=== PATIENT | male | born 1995 | race Caucasian/White ===

== ENCOUNTER 2016-05-31 11:49 | Day surgery (SDC) | payer OTHER ==
[2016-05-26 16:47] VITALS: BMI 20.8
[2016-05-31] MEDS ORDERED: ROPIVACAINE HCL 0.5% 30ML VIAL ONE (13:53)
[2016-05-31] MEDS ORDERED: ONDANSETRON 4 MG/2 ML VIAL IVPUSH PRN (15:28)
[2016-05-31] MEDS ORDERED: oxyCODONE HCL 5 MG TABLET PO PRN ×2 (15:28)
[2016-05-31] MEDS ORDERED: oxyCODONE HCL 5 MG TABLET ONE (16:16)
[2016-05-31 21:11] VITALS: BP 123/68; PULSE 61; TEMP 98
--- NOTE | 2016-05-31 21:59 | OP ---
DATE OF OPERATION: 05/31/2016 PREOPERATIVE DIAGNOSIS: Left likely triangular fibrocartilaginous complex tear. POSTOPERATIVE DIAGNOSIS: Left triangular fibrocartilaginous complex partial tear. PROCEDURE: Left wrist operative arthroscopy with debridement of triangular fibrocartilaginous complex tear. SURGEON: Dg Fernando MD ANESTHESIA: General. COMPLICATIONS: None. ESTIMATED BLOOD LOSS: Minimal. INDICATIONS FOR PROCEDURE: The patient is a 20-year-old male with the above finding, indicated for operative treatment. Risks, benefits, alternatives were discussed with patient at length. Proper informed consent was obtained. PROCEDURE: After proper identification of patient and correct operative site, patient brought to operating room, placed supine on the table, parts well padded. General anesthesia was provided by the anesthesiologist. The left upper extremity was prepped and draped in usual sterile fashion. A well padded tourniquet was placed over sterile prep. Left upper extremity was placed into the wrist traction tower with 10 pounds of in-line traction. A 2.7 mm gravity arthroscope was used through incisions that were made with skin incision only and blunt dissection down to the joint capsule. The 3-4 and 4-5 portals were used. Radiocarpal joint was observed and found to be free of articular defects. Scapholunate and lunotriquetral ligaments were intact. No loose bodies were noted. Volar ligaments were intact. Fraying of the volar and dorsal aspect of the TFCC were noted and this was debrided with mechanical shaver. Significant dorsal synovitis was found at the ulnar aspect of the TFCC. Partial tearing was noted of the TFCC tear here but no phuc full-thickness tear was noted. Excellent trampoline effect was noted and there was no instability of the DRUJ. After debridement was complete, no further treatment was necessary at this time and the wounds were repaired with 5-0 nylon suture. Sterile dressings were applied. Patient was reversed from anesthesia and brought to the recovery room in stable condition. He tolerated the procedure well. DG FERNANDO M.D. GUILHERME/[id number]
== END 2016-05-31 17:20 | disposition home or self-care (01) ==
LOC: FASU 11:49
PROVIDERS: ATTEND Orthopaedic Surgery Hand Surgery
PROC: 0RBN4ZZ Excision of Right Wrist Joint, Percutaneous Endoscopic Approach (ICD-10-PCS; principal; 2016-05-31 14:29)
DX: S63.591A Other specified sprain of right wrist, initial encounter (principal); X58.XXXA Exposure to other specified factors, initial encounter; Y93.9 Activity, unspecified; Y92.9 Unspecified place or not applicable
CPT/HCPCS: 94760

== ENCOUNTER 2016-07-22 23:23 | Emergency (ER) | payer OTHER ==
[2016-07-22 23:30] VITALS: BP 129/74; PULSE 62; TEMP 98; BMI 19.8
[2016-07-23] MEDS ORDERED: METOCLOPRAMIDE HCL INJECTION 10 MG/2 ML VIAL IVPUSH ONE (00:41)
[2016-07-23] MEDS ORDERED: SODIUM CHLORIDE 0.9% 500 ML INFUS.BAG IV ONE (00:41)
--- NOTE | 2016-07-23 00:42 | PDOC ---
History of Present Illness - General History Source: Patient Exam Limitations: No Limitations - History of Present Illness Initial Comments: 07/23/16 00:56 The patient is a 20 year old male with no significant past medical history who presents to the ED with complaints of migraine headaches for two weeks. The patient locates the pain to the frontal and temporal regions of his head and complains of associated light sensitivity, visual changes, and nausea. He reports having an appointment with a neurologist on Sunday and has been taking fioricet which provides minimal relief. He denies any recent illness, fever, chills, vomiting, diarrhea, cough, shortness of breath, chest pain, or urinary symptoms. <Amy Rodriguez - Last Filed: 07/23/16 04:13> - General History Source: Patient <GuillaumeBob Mike - Last Filed: 07/23/16 04:37> - General Chief Complaint: Migraine Headache Stated Complaint: MIGRAINE/BLURRY VISION Past History <Amy Rodriguez - Last Filed: 07/23/16 04:13> - Past Medical History Anemia: No Asthma: Yes (ALBUTEROL USED 05/25/16 X 3-LAST USED 1 YEAR AGO) Cancer: No Cardiac Disorders: No CVA: No COPD: No CHF: No Dementia: No Diabetes: No GI Disorders: No Disorders: No HTN: No Hypercholesterolemia: No Liver Disease: No Seizures: No Thyroid Disease: No - Immunization History Immunization Up to Date: Yes - Psycho/Social/Smoking Cessation Hx Anxiety: No Suicidal Ideation: No Smoking Status: No Smoking History: Never smoked Have you smoked in the past 12 months: No Number of Cigarettes Smoked Daily: 0 Hx Alcohol Use: Yes (OCCASIONALLY) Drug/Substance Use Hx: No (FEW TIMES PER WEEK) Substance Use Type: Marijuana Hx Substance Use Treatment: No <Palmer LakeBob Mkie - Last Filed: 07/23/16 04:37> - Past Medical History Allergies/Adverse Reactions: Allergies Allergy/AdvReac Type Severity Reaction Status Date / Time No Known Allergies Allergy Verified 07/22/16 23:30 Home Medications: Ambulatory Orders Albuterol 0.083% Nebulizer Traci [Ventolin 0.083%] 1 neb NEB Q4H PRN 05/26/16 Albuterol Sulfate Inhaler - [Ventolin Hfa Inhaler -] 1 - 2 inh PO Q4H PRN Review of Systems - Review of Systems Able to Perform ROS?: Yes Comments:: 07/23/16 00:56 GENERAL/CONSTITUTIONAL: No fever or chills. No weakness. HEAD, EYES, EARS, NOSE AND THROAT: No change in vision. No ear pain or discharge. No sore throat. CARDIOVASCULAR: No chest pain or shortness of breath. RESPIRATORY: No cough, wheezing, or hemoptysis. GASTROINTESTINAL: Present: Nausea No vomiting, diarrhea or constipation. GENITOURINARY: No dysuria, frequency, or change in urination. MUSCULOSKELETAL: No joint or muscle swelling or pain. No neck or back pain. SKIN: No rash NEUROLOGIC: Present: headache, light sensitivity, visual changes No vertigo, loss of consciousness, or change in strength/sensation. ENDOCRINE: No increased thirst. No abnormal weight change. HEMATOLOGIC/LYMPHATIC: No anemia, easy bleeding, or history of blood clots. ALLERGIC/IMMUNOLOGIC: No hives or skin allergy. All Other Systems: Reviewed and Negative <mAy Rodriguez - Last Filed: 07/23/16 04:13> *Physical Exam - Vital Signs Last Vital Signs Temp Pulse Resp BP Pulse Ox 98 F 62 18 129/74 100 07/22/16 23:26 07/22/16 23:26 07/22/16 23:26 07/22/16 23:26 07/22/16 23:26 - Physical Exam Comments: 07/23/16 00:57 GENERAL: Awake, alert, and fully oriented, in no acute distress HEAD: No signs of trauma EYES:Photophobia, normal visual acuity bilaterally, PERRLA, EOMI, sclera anicteric, conjunctiva clear ENT: Auricles normal inspection, hearing grossly normal, nares patent, oropharynx clear without exudates. Moist mucosa NECK: Normal ROM, supple, no lymphadenopathy, JVD, or masses LUNGS: Breath sounds equal, clear to auscultation bilaterally. No wheezes, and no crackles HEART: Regular rate and rhythm, normal S1 and S2, no murmurs, rubs or gallops ABDOMEN: Soft, nontender, normoactive bowel sounds. No guarding, no rebound. No masses EXTREMITIES: Normal range of motion, no edema. No clubbing or cyanosis. No cords , erythema, or tenderness NEUROLOGICAL: Cranial nerves II through XII grossly intact. Normal speech, normal gait SKIN: Warm, Dry, normal turgor, no rashes or lesions noted. <carlosquocAmy - Last Filed: 07/23/16 04:13> - Vital Signs Last Vital Signs Temp Pulse Resp BP Pulse Ox 98 F 62 18 129/74 100 07/22/16 23:26 07/22/16 23:26 07/22/16 23:26 07/22/16 23:26 07/22/16 23:26 <Bob Galaviz - Last Filed: 07/23/16 04:37> ED Treatment Course - RADIOLOGY Radiograph Interpretation: 07/23/16 01:[address] as reviewed by Dr. Banerjee reports no intracranial abnormality. No bleed , infarct or mass. <carlosquocAmy - Last Filed: 07/23/16 04:13> Medical Decision Making - Medical Decision Making 07/23/16 04:31 20yo m with 5 days migraine type headache and today he reports change in vision ; objectively, there is photophobia and with analgesia, he improved significantly; there was no visual deficit objectively and he has no findings on PE; He has a negative head CT noncontrast. He is encouraged to follow up with neurology and encouraged to return if there is any change otherwise in symptoms. <Bob Galaviz - Last Filed: 07/23/16 04:37> *DC/Admit/Observation/Transfer - Attestations Scribe Attestion: 07/23/16 00:58 Documentation prepared by Amy Rodriguez, acting as medical biller for Bob Galaviz MD. <skylaAmy - Last Filed: 07/23/16 04:13> - Discharge Dispostion Admit: No Decision to Admit order Date/Time: 07/23/16 04:27 - Attestations Physician Attestion: 07/23/16 04:31 I, Dr. Bob Galaviz MD, attest that this document has been prepared under my direction and personally reviewed by me in its entirety. I further attest, that it accurately reflects all work, treatment, procedures and medical decision -making performed by me. <Bob Galaviz - Last Filed: 07/23/16 04:37> Diagnosis at time of Disposition: Migraine Qualifiers: Migraine type: without aura - Discharge Dispostion Disposition: HOME Condition at time of disposition: Good - Referrals Referrals: STAFF,NOT ON [Primary Care Provider] - - Patient Instructions Additional Instructions: Please follow up with your PMD within the next 48 hours and if there is any change otherwise in symptoms, please return immediately to the ED.
[2016-07-23] MEDS ORDERED: METOCLOPRAMIDE HCL INJECTION 10 MG/2 ML VIAL ONE (00:52)
== END 2016-07-23 04:47 | disposition home or self-care (01) ==
LOC: JER 23:23
PROC: 3E033GC Introduction of Other Therapeutic Substance into Peripheral Vein, Percutaneous Approach (ICD-10-PCS; principal; 2016-07-22)
DX: G43.009 Migraine without aura, not intractable, without status migrainosus (principal)
CPT/HCPCS: 70450-TC; 99282-25

== ENCOUNTER 2017-03-14 19:22 | Emergency (ER) | payer OTHER ==
[2017-03-14 19:33] VITALS: BP 142/80; PULSE 80; TEMP 97.3; BMI 20.9
--- NOTE | 2017-03-14 20:00 | PDOC ---
History of Present Illness - General Chief Complaint: Eye Problem Stated Complaint: INJURY Time Seen by Provider: 03/14/17 19:48 Past History - Past Medical History Allergies/Adverse Reactions: Allergies Allergy/AdvReac Type Severity Reaction Status Date / Time No Known Allergies Allergy Verified 07/22/16 23:30 Home Medications: Ambulatory Orders Ofloxacin 0.3% Ophth Soln [Ocuflox -] 1 drop OD Q2H #84 drops 03/14/17 Anemia: No Asthma: Yes (ALBUTEROL USED 05/25/16 X 3-LAST USED 1 YEAR AGO) Cancer: No Cardiac Disorders: No CVA: No COPD: No CHF: No Dementia: No Diabetes: No GI Disorders: No Disorders: No HTN: No Hypercholesterolemia: No Liver Disease: No Seizures: No Thyroid Disease: No - Immunization History Immunization Up to Date: Yes - Suicide/Smoking/Psychosocial Hx Smoking Status: No Smoking History: Never smoked Have you smoked in the past 12 months: No Number of Cigarettes Smoked Daily: 0 Information on smoking cessation initiated: No Hx Alcohol Use: No Drug/Substance Use Hx: No Substance Use Type: Marijuana Hx Substance Use Treatment: No *Physical Exam - Vital Signs Last Vital Signs Temp Pulse Resp BP Pulse Ox 97.3 F L 80 16 142/80 99 03/14/17 19:29 03/14/17 19:29 03/14/17 19:29 03/14/17 19:29 03/14/17 19:29 *DC/Admit/Observation/Transfer Diagnosis at time of Disposition: Corneal abrasion, right Qualifiers: Encounter type: initial encounter Qualified Code(s): S05.01XA - Injury of conjunctiva and corneal abrasion without foreign body, right eye, initial encounter - Discharge Dispostion Disposition: HOME Condition at time of disposition: Good - Referrals Referrals: Nestor Whelan MD [Staff Physician] - - Patient Instructions Printed Discharge Instructions: DI for Corneal Abrasion Additional Instructions: You have a scratch on your eye or a corneal abrasion. These will heal in a couple of days. You were prescribed eye drops. Please use them for the next week. You may use Tylenol or motrin as needed for pain. Follow up with opthamology within one week. Return to the ED if your vision changes, if you have fevers, chills, or if you have any changes in your symptoms - Post Discharge Activity
[2017-03-14] MEDS ORDERED: IBUPROFEN 600 MG TABLET (FP) PO ONE (20:21)
== END 2017-03-14 20:32 | disposition home or self-care (01) ==
LOC: JERFT 19:22
DX: S05.01XA Injury of conjunctiva and corneal abrasion without foreign body, right eye, initial encounter (principal); X58.XXXA Exposure to other specified factors, initial encounter; Y93.89 Activity, other specified; Y92.9 Unspecified place or not applicable
CPT/HCPCS: 99281-25

== ENCOUNTER 2017-03-21 19:53 | Emergency (ER) | payer OTHER ==
[2017-03-21 20:14] VITALS: TEMP 97.8; BMI 20.9
--- NOTE | 2017-03-21 20:15 | PDOC ---
Rapid Medical Evaluation Chief Complaint: Rectal Bleed Time Seen by Provider: 03/21/17 20:12 Medical Evaluation: Allergies Allergy/AdvReac Type Severity Reaction Status Date / Time No Known Allergies Allergy Verified 07/22/16 23:30 03/21/17 20:12 I have performed a brief in-person evaluation of this patient. The patient presents with a chief complaint of: Rectal Bleeding. Pertinent physical exam findings: none. I have ordered the following: cbc, cmp, type and screen, pt/inr, urinalysis The patient will proceed to the ED for further evaluation.
[2017-03-21 20:49] LABS: EOSINOPHIL 2.6 % (0-4.5); MCHC 35.8 g/dl (32.0-35.9); MEAN PLT VOLUME 7.1 fl (7.5-11.1); NEUTROPHILS 66.4 % (42.8-82.8); PLATELET COUNT 195 K/MM3 (134-434); RDW 12.8 % (11.9-15.9)
--- NOTE | 2017-03-21 20:54 | PDOC ---
History of Present Illness - General History Source: Patient Exam Limitations: No Limitations - History of Present Illness Initial Comments: 03/21/17 22:16 The patient is a 21 year old male, with a significant past medical history of asthma, who presents to the emergency department with rectal bleeding since earlier this morning. The patient reports first noting bright red blood in his stool during his first bowel movement this morning. As the day went on, patient reports another bowel movement nonbloody in nature. Prior to presentation, patient reports a bowel movement with minimal stool and hematochezia. He reports associated abdominal pain localized periumbilically and lower back pain , but denies any nausea, vomiting, diarrhea, constipation, or melena. He denies any family history of GI bleeds. He denies any fever, chills, joint pain, dizziness, or lightheadedness. He denies any dysuria, hematuria, frequency, or urgency. He denies any heavy lifting, trauma, recent travel or sick contacts. Allergies: NKDA Past Surgical History: None reported Social History: Non smoker. No ETOH or recreational drug use. Family History: Father: gastric ulcers, colon cancer <ThomasCatrachitalaith - Last Filed: 03/22/17 01:18> <Hipolito Zayas - Last Filed: 03/22/17 01:40> - General Chief Complaint: Rectal Bleed Stated Complaint: RECTAL BLEEDING Time Seen by Provider: 03/21/17 20:53 Past History <Dean Guzman - Last Filed: 03/22/17 01:18> - Past Medical History Anemia: No Asthma: Yes (ALBUTEROL USED 05/25/16 X 3-LAST USED 1 YEAR AGO) Cancer: No Cardiac Disorders: No CVA: No COPD: No CHF: No Dementia: No Diabetes: No GI Disorders: No Disorders: No HTN: No Hypercholesterolemia: No Liver Disease: No Seizures: No Thyroid Disease: No - Immunization History Immunization Up to Date: Yes - Suicide/Smoking/Psychosocial Hx Smoking Status: No Smoking History: Never smoked Have you smoked in the past 12 months: No Number of Cigarettes Smoked Daily: 0 Hx Alcohol Use: No Drug/Substance Use Hx: No Substance Use Type: Marijuana Hx Substance Use Treatment: No <Hipolito Zayas - Last Filed: 03/22/17 01:40> - Past Medical History Allergies/Adverse Reactions: Allergies Allergy/AdvReac Type Severity Reaction Status Date / Time No Known Allergies Allergy Verified 03/21/17 20:11 Home Medications: Ambulatory Orders NK [No Known Home Medication] 03/21/17 Review of Systems - Review of Systems Able to Perform ROS?: Yes Comments:: 03/21/17 22:16 CONSTITUTIONAL: No fever, no chills, no fatigue EYES: No visual changes ENT: No ear pain, no sore throat CARDIOVASCULAR: No chest pain, no palpitations RESPIRATORY: No cough, no SOB GI: Yes periumbilical abdominal pain, hematochezia. No nausea, no vomiting, no constipation, no diarrhea, no melena GENITOURINARY: No dysuria, no frequency, no hematuria MUSCULOSKELETAL: Yes lower back pain. No joint pain, no myalgias SKIN: No rash NEURO: No headache <Dean Guzman - Last Filed: 03/22/17 01:18> *Physical Exam - Vital Signs Last Vital Signs Temp Pulse Resp BP Pulse Ox 97.8 F 81 18 121/78 99 03/21/17 20:13 03/21/17 20:13 03/21/17 20:13 03/21/17 20:13 03/21/17 20:13 - Physical Exam Comments: 03/21/17 22:16 CONSTITUTIONAL: Well-appearing; well-nourished; in no apparent distress HEAD: Normocephalic; atraumatic EYES: PERRL; EOM intact ENMT: External appears normal; normal oropharynx NECK: Supple; non-tender; no cervical lymphadenopathy CARD: Normal S1, S2; no murmurs, rubs, or gallops RESP: Normal chest excursion with respiration; breath sounds clear and equal bilaterally; no wheezes, rhonchi, or rales ABD: Periumbilical tenderness to palpation. Soft, non-distended; no palpable organomegaly, no palpable hernias EXT: Normal ROM in all four extremities; non-tender to palpation; distal pulses intact SKIN: Warm, dry, no rash NEURO: No focal neurological deficiencies. <Dean Guzman - Last Filed: 03/22/17 01:18> - Vital Signs Last Vital Signs Temp Pulse Resp BP Pulse Ox 97.8 F 81 18 121/78 99 03/21/17 20:13 03/21/17 20:13 03/21/17 20:13 03/21/17 20:13 03/21/17 20:13 <Hipolito Zayas - Last Filed: 03/22/17 01:40> ED Treatment Course - LABORATORY CBC & Chemistry Diagram: 03/21/17 20:40 03/21/17 20:35 - ADDITIONAL ORDERS Additional order review: Laboratory Results 03/21/17 03/21/17 03/21/17 21:50 20:35 20:35 PT with INR INR PTT (Actin FS) Sodium 141 Potassium 3.8 Chloride 105 Carbon Dioxide 29 Anion Gap 7 L BUN 16 Creatinine 1.3 D Creat Clearance w eGFR > 60 Random Glucose 71 L Calcium 8.5 Total Bilirubin 0.6 AST 21 D ALT 53 D Alkaline Phosphatase 68 Total Protein 7.7 Albumin 4.4 Stool Occult Blood Negative Blood Type B NEGATIVE Antibody Screen Negative 03/21/17 20:35 PT with INR 11.50 INR 1.02 PTT (Actin FS) 29.1 Sodium Potassium Chloride Carbon Dioxide Anion Gap BUN Creatinine Creat Clearance w eGFR Random Glucose Calcium Total Bilirubin AST ALT Alkaline Phosphatase Total Protein Albumin Stool Occult Blood Blood Type Antibody Screen 03/21/17 20:40 RBC 5.15 MCV 84.0 MCHC 35.8 RDW 12.8 MPV 7.1 L Neutrophils % 66.4 D Lymphocytes % 23.8 D Monocytes % 6.2 Eosinophils % 2.6 Basophils % 1.0 - RADIOLOGY Radiograph Interpretation: 03/22/17 00:57 EXAM: CT Abdomen and Pelvis INTERPRETED BY: Dr. Krishna REVIEWED BY: Dr. Zayas IMPRESSION: No localizing signs of acute pathology. Minimal pelvic free fluid is nonspecific, potentially physiologic <GuzmanGiomilsy - Last Filed: 03/22/17 01:18> - LABORATORY CBC & Chemistry Diagram: 03/21/17 20:40 03/21/17 20:35 - ADDITIONAL ORDERS Additional order review: 03/21/17 20:40 RBC 5.15 MCV 84.0 MCHC 35.8 RDW 12.8 MPV 7.1 L Neutrophils % 66.4 D Lymphocytes % 23.8 D Monocytes % 6.2 Eosinophils % 2.6 Basophils % 1.0 <Hipolito Zayas - Last Filed: 03/22/17 01:40> Medical Decision Making - Medical Decision Making 03/21/17 23:26 21-year-old male presents with several episodes of bright red blood per rectum associated with atraumatic periumbilical pain. In the ER, patient is awake and alert, afebrile, hemodynamically stable. Serial abdominal exams reveal periumbilical tenderness only without guarding or rebound rectal exam reveals no evidence of external lesions or active bleeding at this time. CBC/CMP within normal limit. Will obtain CT of abdomen and pelvis with by mouth and IV contrast to rule out colitis versus IBD. Will reassess. 03/22/17 00:59 Patient is resting comfortably, with mild persistent periumbilical discomfort only without guarding rebound. Patient tolerates by mouth. CBC/CMP within normal limit. After administration of by mouth nightly contrast, patient complaining of mild dysphasia. On reevaluation, no evidence of angioedema or stridor is noted. Patient is currently drinking water without any difficulty. CT of abdomen and pelvis reveals no evidence of acute intra-abdominal pathology. There is no indication for IV antibiotic therapy at this time. I do not suspect infectious colitis or intussusception at this time. Patient has been advised of the lab and radiological findings. Will follow-up with GI. Patient will return for recurrent or worsening symptoms. Patient is safe for discharge with follow-up. 03/22/17 01:12 No stridor is noted. Patient was able to tolerate a pitcher of water. Patient complains of numbness to the base of the tongue. We'll administer Benadryl. We' ll continue to observe. 03/22/17 01:39 pt with left sided globus sensation only. george po. bernardo d/c. <Hipolito Zayas - Last Filed: 03/22/17 01:40> *DC/Admit/Observation/Transfer - Attestations Scribe Attestion: 03/21/17 22:17 Documentation prepared by Dean Guzman, acting as medical housekeeper for Hipolito Zayas MD. <Dean Guzman - Last Filed: 03/22/17 01:18> - Attestations Physician Attestion: 03/21/17 23:25 The documentation was prepared by the scribe under my direct supervision. I have reviewed the documentation which correctly represents the findings, medical decision-making and critical action taken by me. <Hipolito Zayas - Last Filed: 03/22/17 01:40> Diagnosis at time of Disposition: Rectal bleeding Abdominal pain Qualifiers: Abdominal location: periumbilical Qualified Code(s): R10.33 - Periumbilical pain - Discharge Dispostion Disposition: HOME Condition at time of disposition: Stable - Referrals Referrals: STAFF,NOT ON [Primary Care Provider] - Jonas Flores MD [Staff Physician] - - Patient Instructions Printed Discharge Instructions: DI for Rectal Bleeding, DI for Abdominal Pain- Adult - Post Discharge Activity
[2017-03-21 21:02] LABS: INR 1.02 (0.82-1.09); PROTHROMBIN TIME (PATIENT) 11.5 SEC (9.98-11.88)
[2017-03-21 21:05] LABS: ACTIVATED PTT 29.1 SECONDS (26.9-34.4)
[2017-03-21 21:18] LABS: ALBUMIN 4.4 g/dl (3.4-5.0); ALK PHOS 68 U/L (45-117); ANION GAP 7 (8-16); BILIRUBIN,TOTAL 0.6 mg/dL (0.2-1.0); CALCIUM 8.5 mg/dL (8.5-10.1); CO2 29 mmol/L (21-32); CREATININE 1.3 mg/dL (0.7-1.3); GLUCOSE,RANDOM 71 mg/dL (74-106); SGOT/AST 21 U/L (15-37); SGPT/ALT 53 U/L (12-78); TOT PROT 7.7 g/dl (6.4-8.2)
[2017-03-21] MEDS ORDERED: SODIUM CHLORIDE 1,000 ML IV STA (21:41)
[2017-03-22] MEDS ORDERED: diphenhydrAMINE HCL 25 MG CAPSULE (FP) PO ONE ×2 (01:12)
[2017-03-22 02:00] VITALS: BP 130/68; PULSE 77
== END 2017-03-22 02:04 | disposition home or self-care (01) ==
LOC: JER 19:53
PROC: 3E0337Z Introduction of Electrolytic and Water Balance Substance into Peripheral Vein, Percutaneous Approach (ICD-10-PCS; principal; 2017-03-21)
DX: R10.33 Periumbilical pain (principal)
CPT/HCPCS: 36415; 74177-TC; 80053; 82272; 85025; 85610; 85730; 86850; 86900; 86901; 99283-25

== ENCOUNTER 2017-09-21 20:53 | Emergency (ER) | payer OTHER ==
[2017-09-21 21:00] VITALS: BP 144/85; PULSE 78; TEMP 98.4; BMI 22.4
--- NOTE | 2017-09-21 21:01 | PDOC ---
Rapid Medical Evaluation Time Seen by Provider: 09/21/17 20:58 Medical Evaluation: Allergies Allergy/AdvReac Type Severity Reaction Status Date / Time No Known Allergies Allergy Verified 07/20/17 21:04 09/21/17 20:59 I have performed a brief-in person evaluation of this patient. The patient presents with a chief complaint of: Right testicular pain shooting up to right side pelvic region. Neg urinary symptoms Pertinent physical exam findings: abd Soft/NT,ND +right pelvic region pain on palp I have ordered the following: testicular US, ua The patient will proceed to the ED for further evaluation. Discharge Disposition - Referrals Referrals: Pema Zurita [Primary Care Provider] - - Patient Instructions - Post Discharge Activity
[2017-09-21 21:30] LABS: URINE APPEARANCE CLEAR; URINE BILIRUBIN NEGATIVE (<2.0 mg/dL); URINE COLOR YELLOW; URINE GLUCOSE (UA) NEGATIVE (NEGATIVE); URINE KETONE NEGATIVE (NEGATIVE); URINE LEUK ESTERASE NEGATIVE (NEGATIVE); URINE NITRITE NEGATIVE (NEGATIVE); URINE PROTEIN NEGATIVE (NEGATIVE); URINE UROBILINOGEN NEGATIVE mg/dL (0.2-1.0)
--- NOTE | 2017-09-21 22:47 | PDOC ---
History of Present Illness - General Chief Complaint: Pain, Acute Stated Complaint: ABD PAIN Time Seen by Provider: 09/21/17 20:58 - History of Present Illness Initial Comments: Patient is a 21 year old male, with a significant past medical history of prior GI bleed, internal hemorrhoids, who presents to the emergency department complaining of 4-5 days of R inguinal and testicular pain. Pt was in usual state of health one week ago when he stated he "pulled something" in his right groin while carrying furniture. A few days later patient noted pain in R inguinal canal, thigh and testicle with intermittent swelling of R testicle. Pt denies any urinary symptoms, discharge, masses in R inguinal canal. Pt sexually active with girlfriend only over last year, does not use protection, with no hx of STDs. Pt denies any rashes, genital lesions, dysuria, hematuria, pyuria, abdominal pain, f/c/n/v/d. The patient denies chest pain, shortness of breath, headache or dizziness. Denies fever, chills, nausea, vomiting, diarrhea and constipation. Denies dysuria, frequency, urgency and hematuria. Allergies: None Past surgical history: R ankle surgery, colonoscopy/endoscopy Social History: Denies toxic habits PMD: Not on staff 09/21/17 23:04 Past History - Past Medical History Allergies/Adverse Reactions: Allergies Allergy/AdvReac Type Severity Reaction Status Date / Time No Known Allergies Allergy Verified 07/20/17 21:04 Home Medications: Ambulatory Orders NK [No Known Home Medication] 03/21/17 Anemia: No Asthma: Yes (ALBUTEROL USED 05/25/16 X 3-LAST USED 1 YEAR AGO) Cancer: No Cardiac Disorders: No CVA: No COPD: No CHF: No Dementia: No Diabetes: No GI Disorders: No Disorders: No HTN: No Hypercholesterolemia: No Liver Disease: No Seizures: No Thyroid Disease: No - Immunization History Immunization Up to Date: Yes - Suicide/Smoking/Psychosocial Hx Smoking Status: No Smoking History: Never smoked Have you smoked in the past 12 months: No Number of Cigarettes Smoked Daily: 0 Information on smoking cessation initiated: No Hx Alcohol Use: No Drug/Substance Use Hx: No Substance Use Type: Marijuana Hx Substance Use Treatment: No Review of Systems - Review of Systems Comments:: GENERAL/CONSTITUTIONAL: No fever or chills. No weakness. HEAD, EYES, EARS, NOSE AND THROAT: No change in vision. No ear pain or discharge. No sore throat. CARDIOVASCULAR: No chest pain or shortness of breath RESPIRATORY: No cough, wheezing, or hemoptysis. GASTROINTESTINAL: No nausea, vomiting, diarrhea or constipation. GENITOURINARY: + pain in R inguinal canal and testicle. No dysuria, frequency, or change in urination. MUSCULOSKELETAL: No joint or muscle swelling or pain. No neck or back pain. SKIN: No rash NEUROLOGIC: No headache, vertigo, loss of consciousness, or change in strength/ sensation. ENDOCRINE: No increased thirst. No abnormal weight change HEMATOLOGIC/LYMPHATIC: No anemia, easy bleeding, or history of blood clots. ALLERGIC/IMMUNOLOGIC: No hives or skin allergy. 09/21/17 23:04 *Physical Exam - Vital Signs Last Vital Signs Temp Pulse Resp BP Pulse Ox 98.4 F 78 20 144/85 99 09/21/17 20:58 09/21/17 20:58 09/21/17 20:58 09/21/17 20:58 09/21/17 20:58 - Physical Exam Comments: GENERAL: Awake, alert, and fully oriented, in no acute distress HEAD: No signs of trauma, normocephalic, atraumatic EYES: PERRLA, EOMI, sclera anicteric, conjunctiva clear ENT: Auricles normal inspection, hearing grossly normal, nares patent, oropharynx clear without exudates. Moist mucosa NECK: Normal ROM, supple, no lymphadenopathy, JVD, or masses LUNGS: No distress, speaks full sentences, clear to auscultation bilaterally HEART: Regular rate and rhythm, normal S1 and S2, no murmurs, rubs or gallops, peripheral pulses normal and equal bilaterally. ABDOMEN: Soft, nontender, normoactive bowel sounds. No guarding, no rebound. No masses EXTREMITIES : Normal inspection, Normal range of motion, no edema. No clubbing or cyanosis. NEUROLOGICAL: Cranial nerves II through XII grossly intact. Normal speech, normal gait, no focal sensorimotor deficits SKIN: Warm, Dry, normal turgor, no rashes or lesions noted GENITAL: No lesions or rashes in penis or testicles, no evidence of varicocele. No pain on palpation. Pain on palpation of R inguinal canal, with no obvious masses palpable. 09/21/17 23:04 ED Treatment Course - LABORATORY CBC & Chemistry Diagram: 09/22/17 00:25 09/22/17 00:25 - ADDITIONAL ORDERS Additional order review: Laboratory Results 09/21/17 21:13 Urine Color Yellow Urine Appearance Clear Urine pH 5.0 Ur Specific [place] 1.023 Urine Protein Negative Urine Glucose (UA) Negative Urine Ketones Negative Urine Blood Negative Urine Nitrite Negative Urine Bilirubin Negative Urine Urobilinogen Negative Ur Leukocyte Esterase Negative Medical Decision Making - Medical Decision Making Patient is a 21 year old male, with a significant past medical history of prior GI bleed, internal hemorrhoids, who presents to the emergency department complaining of 4-5 days of R inguinal and testicular pain. DDX includes inguinal hernia, femoral hernia, testicular torsion, UTI, STI. Plan: - Testicular U/S - UA - CBC, CMP, PT/INR - Pain control with IV morphine 09/21/17 23:14 *DC/Admit/Observation/Transfer Diagnosis at time of Disposition: Deep inguinal pain, right - Discharge Dispostion Disposition: HOME Condition at time of disposition: Good Decision to Admit order: No - Referrals Referrals: Pema Zurita [Primary Care Provider] - Call tomorrow - Patient Instructions Additional Instructions: During your visit to the [facility] ED, you were evaluated for pain in your R groin. You received standard labs, a urinalysis and ultrasound of your testicles, which were all normal. You are being discharged home with outpatient follow-up with your primary care provider. Please take motrin 600mg every four hours if you experience this pain. If you experience any of the following symptoms, please return to the ED: - Persistent fevers/chills >3 days - Worsening pain in your groin - Any blood, pus or pain when your urinate - Persistent diarrhea or blood in your stool - Any new or concerning symptoms - Post Discharge Activity
[2017-09-21] MEDS ORDERED: morphine CARPU-JECT 2 MG/1 ML DISP.SYRIN IVPUSH ONE (23:17)
[2017-09-22] MEDS ORDERED: morphine CARPU-JECT 2 MG/1 ML DISP.SYRIN ONE ×2 (00:31→03:02)
[2017-09-22 00:37] LABS: BASO % 1.3 % (0-2.0); EOS % 3.2 % (0-4.5); HEMATOCRIT 44.5 % (35.4-49); HEMOGLOBIN 15.5 GM/dL (11.7-16.9); LYMPH % 45.3 % (8-40); MCH 29.3 pg (25.7-33.7); MCHC 34.9 g/dl (32.0-35.9); MEAN CELL VOLUME 83.8 fl (80-96); MEAN PLT VOLUME 7.6 fl (7.5-11.1); MONO % 5.3 % (3.8-10.2); NEUT % 44.9 % (42.8-82.8); PLATELET COUNT 223 K/MM3 (134-434); RBC 5.31 M/mm3 (4.00-5.60); RDW 12.7 % (11.9-15.9); WHITE BLOOD COUNT 6.8 K/mm3 (4.0-10.0)
[2017-09-22 00:49] LABS: INR 1.11 (0.82-1.09); PROTHROMBIN TIME (PATIENT) 12.5 SEC (9.7-13.0)
[2017-09-22 00:59] LABS: ALBUMIN 4.3 g/dl (3.4-5.0); ALK PHOS 69 U/L (45-117); ANION GAP 9 (8-16); BILIRUBIN,TOTAL 0.6 mg/dL (0.2-1.0); BLOOD UREA NITROGEN 17 mg/dL (7-18); CALCIUM 8.9 mg/dL (8.5-10.1); CHLORIDE 103 mmol/L (98-107); CO2 27 mmol/L (21-32); CREATININE 1.2 mg/dL (0.7-1.3); GLUCOSE,RANDOM 79 mg/dL (74-106); POTASSIUM 3.9 mmol/L (3.5-5.1); SGOT/AST 16 U/L (15-37); SGPT/ALT 24 U/L (12-78); SODIUM 139 mmol/L (136-145); TOT PROT 7.5 g/dl (6.4-8.2)
[2017-09-22] MEDS ORDERED: morphine CARPU-JECT 4 MG/1 ML DISP.SYRIN IVPUSH ONE (02:42)
--- NOTE | 2017-09-22 05:59 | PDOC ---
Attending Attestation - [facility] HPI: 09/22/17 06:07 The patient is a 21 year old male with a significant PMH of GI bleed and internal hemorrhoids who presents to the emergency department with right inguinal and testicular pain for approximately 4 days. The patient states he began feeling this inguinal and testicular pain began feeling this pain after carrying furniture. The patient describes the testicular pain as raditing to the right toes. The patient reports the pain worsened when coughing ior sneezing. The patient denes any difficulty eating or drinking. The patient denies chest pain, shortness of breath, headache and dizziness. Denies fever, chills, nausea, vomit, diarrhea and constipation. Denies dysuria, frequency, urgency and hematuria. Allergies: NKA Past surgical history: None reported. Social history: No reported alcohol, drug, or cigarette use. v - Physicial Exam PE: 09/22/17 06:07 " General Physical Exam: NAD EOMI, VEENA MMM, OP WNL NCAT, no midline cervical tenderness RRR, nl s1/s2, no m/r/g CTABL, no w/r/r Soft, NTND (+) Mild tenderness to the mid inguinal area. No edema, WWP, no rash Neuro grossly intact, gait WNL, moving all 4 A&O x 3, mood/affect WNL. "
[2017-09-22] MEDS ORDERED: IBUPROFEN 400 MG TABLET (FP) PO ONE ×2 (06:20→06:58)
== END 2017-09-22 07:07 | disposition home or self-care (01) ==
LOC: JER 20:53
PROC: 3E033NZ Introduction of Analgesics, Hypnotics, Sedatives into Peripheral Vein, Percutaneous Approach (ICD-10-PCS; principal; 2017-09-21)
DX: R10.31 Right lower quadrant pain (principal); Z87.19 Personal history of other diseases of the digestive system; Z87.09 Personal history of other diseases of the respiratory system; X50.0XXA Overexertion from strenuous movement or load, initial encounter; Y93.E9 Activity, other interior property and clothing maintenance; Y92.89 Other specified places as the place of occurrence of the external cause; Y99.8 Other external cause status
CPT/HCPCS: 36415; 76870-TC; 80053; 81003; 85025; 85610; 99281-25

== ENCOUNTER 2018-01-01 19:32 | Emergency (ER) | payer OTHER ==
--- NOTE | 2018-01-01 19:46 | PDOC ---
Rapid Medical Evaluation Time Seen by Provider: 01/01/18 19:41 Medical Evaluation: Allergies Allergy/AdvReac Type Severity Reaction Status Date / Time No Known Allergies Allergy Verified 07/20/17 21:04 01/01/18 19:42 I have performed a brief in-person evaluation of this patient. The patient presents with a chief complaint of: :L index laceration sustained he accidentally drills a nail gun into finger at work, last tetanus >10yrs ago Pertinent physical exam findings:+ puncture in L index pad I have ordered the following:xray The patient will proceed to the ED for further evaluation. 01/01/18 19:46 Discharge Disposition - Diagnosis Finger laceration Qualifiers: Encounter type: initial encounter Finger: index finger Damage to nail status: with damage Foreign body presence: unspecified Laterality: left Qualified Code(s ): S61.311A - Laceration without foreign body of left index finger with damage to nail, initial encounter - Referrals Referrals: Pema Zurita [Primary Care Provider] - - Patient Instructions - Post Discharge Activity
[2018-01-01 19:49] VITALS: BP 152/95; PULSE 71; TEMP 98; BMI 21.7
[2018-01-01] MEDS ORDERED: TETANUS AND DIPHTHERIA TOXOID 0.5 ML DISP.SYRIN IM ONE (20:42)
--- NOTE | 2018-01-01 20:52 | PDOC ---
History of Present Illness - General Chief Complaint: Injury Stated Complaint: LEFT FINGER INJURY Time Seen by Provider: 01/01/18 19:41 - History of Present Illness Initial Comments: 01/01/18 20:47 22-year-old male without comorbidities presents for a puncture wound of his left second finger. 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 Past History - Past Medical History Allergies/Adverse Reactions: Allergies Allergy/AdvReac Type Severity Reaction Status Date / Time No Known Allergies Allergy Verified 07/20/17 21:04 Home Medications: Ambulatory Orders Cephalexin [Keflex] 500 mg PO QID #40 capsule 01/01/18 Sulfamethoxazole/Trimethoprim [Bactrim Ds -] 1 tab PO BID #14 tablet 01/01/18 Anemia: No Asthma: Yes (ALBUTEROL USED 05/25/16 X 3-LAST USED 1 YEAR AGO) Cancer: No Cardiac Disorders: No CVA: No COPD: No CHF: No Dementia: No Diabetes: No GI Disorders: No Disorders: No HTN: No Hypercholesterolemia: No Liver Disease: No Seizures: No Thyroid Disease: No - Immunization History Immunization Up to Date: Yes - Suicide/Smoking/Psychosocial Hx Smoking Status: No Smoking History: Never smoked Have you smoked in the past 12 months: No Number of Cigarettes Smoked Daily: 0 Information on smoking cessation initiated: No Hx Alcohol Use: No Drug/Substance Use Hx: No Substance Use Type: Marijuana Hx Substance Use Treatment: No Review of Systems - Review of Systems Musculoskeletal: Yes: See HPI All Other Systems: Reviewed and Negative *Physical Exam - Vital Signs Last Vital Signs Temp Pulse Resp BP Pulse Ox 98 F 71 16 152/95 100 01/01/18 19:44 01/01/18 19:44 01/01/18 19:44 01/01/18 19:44 01/01/18 19:44 - Physical Exam Comments: There is a small puncture wound at the ulnar tip of the left second finger. FDS and FDP work independently. He has no gross sensorimotor deficits she is neurovascularly intact. 01/01/18 20:48 Medical Decision Making - Medical Decision Making The wound was copiously irrigated and dry sterile dressing was placed. 01/01/18 20:49 *DC/Admit/Observation/Transfer Diagnosis at time of Disposition: Puncture wound Diagnosis at time of Disposition: (Ruled Out): Finger laceration - Discharge Dispostion Disposition: HOME Condition at time of disposition: Stable Decision to Admit order: No - Referrals Referrals: Pema Zurita [Primary Care Provider] - Donell Larsen MD [Staff Physician] - - Patient Instructions Printed Discharge Instructions: DI for Puncture Wound Additional Instructions: Return to the emergency room should he experience any increasing pain and redness swellings or drainage from the wound. Follow-up with hand surgery in 1- 2 days further evaluation and treatment options. Take the antibiotics as directed and he may use Tylenol and Motrin for pain as directed. Leave the dressing on for 24 hours after which may remove the dressing and wash her hand with soap and water and leave the area open to air. if you are working need to use you your hand you may cover with a dry sterile dressing. - Post Discharge Activity
== END 2018-01-01 20:53 | disposition home or self-care (01) ==
LOC: JERFT 19:32
PROC: 3E0234Z Introduction of Serum, Toxoid and Vaccine into Muscle, Percutaneous Approach (ICD-10-PCS; principal; 2018-01-01)
DX: S61.231A Puncture wound without foreign body of left index finger without damage to nail, initial encounter (principal)
CPT/HCPCS: 73140-TC-LT-FY; 99281-25

== ENCOUNTER 2020-08-11 09:31 | Day surgery (SDC) | payer OTHER ==
[2020-08-09 13:59] VITALS: BMI 21.7
[2020-08-11] MEDS ORDERED: PROPOFOL 20 ML ONE ×2 (11:09)
[2020-08-11] MEDS ORDERED: MIDAZOLAM HCL 2 MG/2 ML SINGLE DOSE VIAL ONE ×3 (11:10→12:31)
[2020-08-11] MEDS ORDERED: BUPIVACAINE HCL/PF 0.25% (2.5MG/ML) 10 ML VIAL ONE (11:20)
[2020-08-11] MEDS ORDERED: ceFAZolin SODIUM 1 GM VIAL ONE (11:28)
[2020-08-11] MEDS ORDERED: ONDANSETRON 4 MG/2 ML VIAL ONE ×2 (11:31→12:33)
[2020-08-11] MEDS ORDERED: DEXAMETHASONE SOD PHOSPHATE 4 MG/1 ML VIAL ONE (11:31)
[2020-08-11] MEDS ORDERED: GUM MASTIC/STORAX/MSAL/ALCOHOL 1 DRP DROPSBTL MC ONE (12:31)
[2020-08-11] MEDS ORDERED: BUPIVACAINE HCL/PF 0.25% (2.5MG/ML) 10 ML VIAL IJ ONE (12:35)
[2020-08-11] MEDS ORDERED: oxyCODONE HCL 5 MG TABLET PO PRN (12:53)
[2020-08-11] MEDS ORDERED: ONDANSETRON 4 MG/2 ML VIAL IVPUSH PRN (12:53)
[2020-08-11] MEDS ORDERED: LACTATED RINGERS SOLUTION 1,000 ML IV SCH (13:00)
[2020-08-11] MEDS ORDERED: KETOROLAC TROMETHAMINE 30 MG/1 ML VIAL ONE (13:25)
[2020-08-11] MEDS ORDERED: ACETAMINOPHEN INJECTION 100 ML IVPB ONE (13:25)
[2020-08-11] MEDS ORDERED: ACETAMINOPHEN 1000 MG/100 ML VIAL (NON FORMULARY) IVPB ONE (13:31)
[2020-08-11] MEDS ORDERED: oxyCODONE HCL 5 MG TABLET ONE (14:01)
[2020-08-11 14:13] VITALS: TEMP 97.5
[2020-08-11 15:00] VITALS: BP 130/78; PULSE 74
== END 2020-08-11 14:55 | disposition home or self-care (01) ==
LOC: FASU 09:31
PROVIDERS: ATTEND Orthopaedic Surgery Hand Surgery
PROC: 0PSP04Z Reposition Right Metacarpal with Internal Fixation Device, Open Approach (ICD-10-PCS; 2020-08-11)
PROC: 0PSP04Z Reposition Right Metacarpal with Internal Fixation Device, Open Approach (ICD-10-PCS; 2020-08-11)
PROC: 0PSM04Z Reposition Right Carpal with Internal Fixation Device, Open Approach (ICD-10-PCS; principal; 2020-08-11 11:30)
DX: S62.304A Unspecified fracture of fourth metacarpal bone, right hand, initial encounter for closed fracture (principal); S62.306A Unspecified fracture of fifth metacarpal bone, right hand, initial encounter for closed fracture; S62.141A Displaced fracture of body of hamate [unciform] bone, right wrist, initial encounter for closed fracture; X58.XXXA Exposure to other specified factors, initial encounter; Y92.9 Unspecified place or not applicable; Y93.9 Activity, unspecified
CPT/HCPCS: 25645; 26615; C1713; 94760; J0131

== ENCOUNTER 2024-07-08 22:37 | Inpatient (IN) | payer OTHER ==
[2024-07-08 23:09] VITALS: BMI 25.0
[2024-07-08] MEDS ORDERED: MAG HYDROX/AL HYDROX/SIMETH 30 ML UNIT-DOSE CUP PO PRN (23:49)
[2024-07-08] MEDS ORDERED: BENZONATATE 200 MG CAPSULE PO PRN (23:49)
[2024-07-08] MEDS ORDERED: IBUPROFEN 400 MG TABLET (FP) PO PRN (23:49)
[2024-07-08] MEDS ORDERED: BENZOCAINE/MENTHOL (CHLORASEPTIC ) LOZENGE MM PRN (23:49)
[2024-07-08] MEDS ORDERED: NALOXONE (NARCAN) HCL 4 MG/0.1 ML SPRAY NS PRN (23:49)
[2024-07-08] MEDS ORDERED: POLYETHYLENE GLYCOL (HEALTHYLAX) 3350 17 GM PACKET PO PRN (23:49)
[2024-07-08] MEDS ORDERED: LOPERAMIDE HCL 2 MG CAPSULE PO PRN (23:49)
[2024-07-08] MEDS ORDERED: guaiFENesin 600 MG TABLET.ER (FP) PO PRN (23:49)
[2024-07-08] MEDS ORDERED: MAGNESIUM HYDROX 2400MG/30ML ORAL SUSPENSION 30 ML CUP PO PRN (23:49)
[2024-07-09] MEDS ORDERED: DICYCLOMINE HCL 10 MG CAPSULE ONE (01:04)
[2024-07-09] MEDS: DICYCLOMINE HCL 10 MG CAPSULE PO PRN (01:08)
[2024-07-09] MEDS: ACETAMINOPHEN 325 MG TABLET (FP) PO PRN (06:28)
[2024-07-09] MEDS ORDERED: ALBUTEROL SO4 HFA INHALER IH PRN (06:50)
[2024-07-09] MEDS: ONDANSETRON *ODT* 4 MG TABLET SL PRN (08:53)
[2024-07-09] MEDS ORDERED: methaDONE HCL 10 MG TABLET (FOR DETOX USE ONLY) PO PRN (09:13)
[2024-07-09] MEDS: PRENATAL VITAMINS W/ FOLIC ACID TABLET (FP) PO SCH (09:35)
[2024-07-09] MEDS: METHOCARBAMOL 500 MG TABLET PO PRN (09:35)
[2024-07-09] MEDS: methaDONE HCL 10 MG TABLET (FOR DETOX USE ONLY) PO ONE (09:36)
[2024-07-09] MEDS: LIDOCAINE 5% TOPICAL PATCH TP SCH (09:41)
[2024-07-09] MEDS: BISMUTH SUBSALICYLATE 524 MG/30 ML PO PRN (15:15)
[2024-07-09] MEDS: IBUPROFEN 600 MG TABLET (FP) PO PRN (15:19)
[2024-07-09] MEDS: diazePAM 5 MG TABLET PO PRN (17:43)
[2024-07-09] MEDS: THIAMINE 100 MG TABLET PO SCH (22:18)
[2024-07-09] MEDS: cloNIDine HCL 0.1 MG TABLET PO PRN (22:18)
[2024-07-09] MEDS: LIDOCAINE PATCH REMOVAL MC SCH (22:18)
[2024-07-09] MEDS: MELATONIN 5 MG TABLETS PO SCH (22:18)
[2024-07-10] MEDS: hydrOXYzine PAMOATE 25 MG CAPSULE (FP) PO PRN (23:39)
[2024-07-11] MEDS: methaDONE HCL 10 MG TABLET (FOR DETOX USE ONLY) PO ONE (10:16)
[2024-07-11] MEDS: METHOCARBAMOL 500 MG TABLET PO ONE (12:43)
[2024-07-11] MEDS: METHOCARBAMOL 500 MG TABLET PO PRN (17:57)
[2024-07-12] MEDS: methaDONE HCL 10 MG TABLET PO ONE (11:15)
[2024-07-13] MEDS: methaDONE HCL 10 MG TABLET PO ONE (09:53)
[2024-07-13] MEDS ORDERED: methaDONE HCL 10 MG TABLET (FOR DETOX USE ONLY) PO ONE (10:00)
[2024-07-14] MEDS ORDERED: cloNIDine HCL 0.1 MG TABLET PO PRN
[2024-07-14 09:44] VITALS: BP 137/85; PULSE 98; RESP 17; TEMP 97.7
[2024-07-14] MEDS ORDERED: methaDONE HCL 10 MG TABLET PO ONE (10:00)
== END 2024-07-14 08:43 | disposition home or self-care (01) | DRG 773 ==
LOC: YASAS 22:37 → Y3N 07-09 00:32
PROVIDERS: ADMIT Allergy & Immunology; ATTEND Allergy & Immunology
PROC: HZ2ZZZZ Detoxification Services for Substance Abuse Treatment (ICD-10-PCS; principal; 2024-07-09)
DX: F11.23 Opioid dependence with withdrawal (principal); F12.20 Cannabis dependence, uncomplicated; F17.210 Nicotine dependence, cigarettes, uncomplicated; J45.20 Mild intermittent asthma, uncomplicated; M54.2 Cervicalgia; G89.29 Other chronic pain
CPT/HCPCS: 36415; 80305; 80307; 86780; Q0162